=== PATIENT | male | born 1975 ===

== ENCOUNTER → 2024-12-18 17:30 | Outpatient (REF) | payer BC, SELFPAY | LOC: MRI 3T 17:30 | PROVIDERS: ATTENDING PHYSICIAN Specialist; FAMILY PHYSICIAN Internal Medicine | DX: R97.20 Elevated prostate specific antigen [PSA] (principal) | CPT/HCPCS: 72197; A9575 ==

== ENCOUNTER → 2025-09-26 10:13 | Outpatient (REF) | payer BC, SELFPAY | LOC: PET 10:13 | PROVIDERS: ATTENDING PHYSICIAN Radiology Radiation Oncology | DX: C61 Malignant neoplasm of prostate (principal) | CPT/HCPCS: 78815; A9595 ==